=== PATIENT | female | born 2000 | race Caucasian/White ===

== ENCOUNTER 2020-04-19 08:49 | Emergency (ER) | payer BC ==
[~2020-04-19] VITALS: Ht 165.1 cm; Wt 52.3 kg
[2020-04-19 09:03] VITALS: BP 115/65; TEMP 98.6
[2020-04-19 10:09] LABS: BASO % 0.6 % (0.0-2.0); EOS % 0.2 % (0-4.0); GRAN # 3.3 (1.4-6.5); GRAN % 61.9 % (42.2-75.2); HEMATOCRIT 42.4 % (35.0-45.0); LYMPH # 1.5 (1.2-3.4); LYMPH % 27.2 % (20.0-51.0); MEAN CELL VOLUME 89 fl (80.0-95.0); MEAN CORPUSCULAR HEMOGLOBIN 29 pg (26.0-32.0); MEAN CORPUSCULAR HGB CONC 33 g/dl (33.0-37.0); MEAN PLATELET VOLUME 12.1 fl (7.4-10.4); MONO # 0.5 (0.1-0.6); MONO % 9.9 % (1.7-9.3); PLATELET COUNT 198 K/mm3 (130-400); RED BLOOD COUNT 4.76 M/mm3 (4.10-5.30); REDCELL DISTRIBUTION WIDTH-CV 12.8 % (11.5-14.5)
[2020-04-19] MEDS ORDERED: CEPHALEXIN500 M1 PO (10:16)
[2020-04-19 10:18] LABS: ALBUMIN 4.5 gm/dL (3.5-5.0); BILIRUBIN,TOTAL 0.4 mg/dL (0.0-1.0); CALCIUM 9.2 mg/dL (8.4-10.2); CREATININE, serum 0.74 (0.52-1.25); TOTAL PROTEIN 7.7 gm/dL (6.4-8.2)
[2020-04-19 10:28] VITALS: PULSE 79
== END 2020-04-19 10:28 | disposition home or self-care (01) ==
LOC: COL.ER 08:49
PROVIDERS: Nurse Practitioner Primary Care
DX: L73.9 Follicular disorder, unspecified (principal); Z88.6 Allergy status to analgesic agent